=== PATIENT | female | born 1995 | race Two or more races ===

== ENCOUNTER 2022-01-22 00:32 | Emergency (ER) | payer OTHER ==
[~2022-01-22] VITALS: Ht 162.6 cm; Wt 54.4 kg
--- NOTE | 2022-01-22 01:10 | NUR ---
TO ER BED 10. [facility] FROM [facility]USTODY REQUESTION FOR BLOOD WORK; PT . PT IS ALERT AND ORIENTED. RR EVEN AND NON LABORED. AMBULATORY WITH STEADY GAIT. CONNECTED TO MONITOR. AWAITING MD MASSEY
--- NOTE | 2022-01-22 01:11 | NUR ---
URINE COLLECTED AND SENT TO LAB
[2022-01-22 01:47] LABS: BILIRUBIN,URINE NEGATIVE (NEGATIVE); COLOR,URINE YELLOW (YELLOW); LEUKOCYTE ESTERASE ,URINE MODERATE (NEGATIVE); NITRITE, URINE NEGATIVE (NEGATIVE); PROTEIN,URINE TRACE mg/dl (NEGATIVE); UGLUCOSE NEGATIVE (NEGATIVE); UROBILINOGEN,URINE 0.2 EU/dL (0.2)
[2022-01-22 01:54] LABS: BACTERIA,URINE Many /HPF (None Seen); RBC,URINE 0-2 /HPF (0-2); SQUAMOUS EPITHELIAL CELL,UR Few /HPF (None Seen)
[2022-01-22] MEDS ORDERED: CEPH500C2 PO (02:52)
[2022-01-22] MEDS ORDERED: PREN-58 PO (02:52)
--- NOTE | 2022-01-22 03:04 | NUR ---
Patient discharged to [employer] custody in stable condition. Written and verbal after care instructions given. Patient verbalizes understanding of instruction. pt ambulatory with a steady gait
[2022-01-22 03:06] VITALS: BP 105/63
== END 2022-01-22 03:06 ==
LOC: ER 00:56
DX: O26.892 Other specified pregnancy related conditions, second trimester (principal); R10.2 Pelvic and perineal pain; Z3A.18 18 weeks gestation of pregnancy
CPT/HCPCS: 36415; 76805-TC; 81001; 84702-TC; 87086-TC